=== PATIENT | male | born 1995 | race Caucasian/White ===

== ENCOUNTER 2019-10-31 10:38 | Emergency (ER) | payer MEDICAID ==
[~2019-10-31] VITALS: Ht 1699.3 cm; Wt 90.7 kg
--- NOTE | 2019-10-31 11:16 | NUR ---
Patient discharged to home in stable condition. Written and verbal after care instructions given. Patient verbalizes understanding of instructions. Stressed follow up or return to ER for worsening s/s.
== END 2019-10-31 11:18 | disposition home or self-care (01) ==
LOC: ER 10:38
DX: M77.9 Enthesopathy, unspecified (principal)
CPT/HCPCS: 73110; 73130; A4663